=== PATIENT | female | born 1975 | race African-American/Black ===

== ENCOUNTER 2017-09-26 19:22 | Emergency (ER) | payer SELFPAY ==
[~2017-09-26] VITALS: Ht 160 cm; Wt 57.0 kg
[2017-09-26 23:15] VITALS: BP 116/83
[2017-09-26] MEDS ORDERED: IBUPROFEN 600MG TABLET PO ONE (23:15)
== END 2017-09-27 00:30 | disposition home or self-care (01) ==
LOC: ER 19:22
DX: S82.091A Other fracture of right patella, initial encounter for closed fracture (principal); F17.200 Nicotine dependence, unspecified, uncomplicated; Z98.890 Other specified postprocedural states; W01.0XXA Fall on same level from slipping, tripping and stumbling without subsequent striking against object, initial encounter; Y93.89 Activity, other specified; Y92.62 Dock or shipyard as the place of occurrence of the external cause
CPT/HCPCS: 73562; 73564; 81025; 99284